=== PATIENT | female | born 1935 | race Hispanic/Latino ===

== ENCOUNTER 2018-04-16 14:34 | Emergency (ER) | payer MEDICARE ==
[2018-04-16] MEDS ORDERED: ACETAMINOPHEN 325 MG TAB ONE (15:33)
== END 2018-04-16 15:39 | disposition home or self-care (01) ==
LOC: EDH 14:34
DX: S80.01XA Contusion of right knee, initial encounter (principal); E11.22 Type 2 diabetes mellitus with diabetic chronic kidney disease; N18.6 End stage renal disease; Z79.4 Long term (current) use of insulin; Z98.890 Other specified postprocedural states; W18.39XA Other fall on same level, initial encounter; Y93.E1 Activity, personal bathing and showering; Y92.89 Other specified places as the place of occurrence of the external cause; Y99.8 Other external cause status
CPT/HCPCS: 73562